=== PATIENT | female | born 1990 | race African-American/Black ===

== ENCOUNTER 2019-01-24 10:25 | Inpatient (IN) | payer BC ==
[2019-01-24 11:20] VITALS: BMI 36.2
[2019-01-24 12:00] LABS: BASO % 0.3 % (0-2.0); EOS % 0.6 % (0-4.5); HEMATOCRIT 35.6 % (32.4-45.2); HEMOGLOBIN 12.1 GM/dL (10.7-15.3); LYMPH % 28.9 % (8-40); MCH 26.5 pg (25.7-33.7); MCHC 33.9 g/dl (32.0-36.0); MEAN PLT VOLUME 8.8 fl (7.5-11.1); MONO % 9.4 % (3.8-10.2); NEUT % 60.8 % (42.8-82.8); PLATELET COUNT 245 K/MM3 (134-434); RBC 4.56 M/mm3 (3.60-5.2); RDW 15.2 % (11.6-15.6); WHITE BLOOD COUNT 6.8 K/mm3 (4.0-10.0)
[2019-01-24 12:16] LABS: INR 0.94 (0.83-1.09); PROTHROMBIN TIME (PATIENT) 11.1 SEC (9.7-13.0)
[2019-01-24 12:19] LABS: ACTIVATED PTT 26.1 SECONDS (25.2-36.5)
[2019-01-24 12:24] LABS: BLOOD UREA NITROGEN 5.9 mg/dL (7-18); CALCIUM 8.5 mg/dL (8.5-10.1); CREATININE 0.6 mg/dL (0.55-1.3); POTASSIUM 4.2 mmol/L (3.5-5.1)
[2019-01-24] MEDS ORDERED: BUTORPHANOL TARTRATE 1 MG/ML VIAL IVPB ONE (14:07)
[2019-01-24] MEDS ORDERED: PROMETHAZINE HCL 25 MG/1 ML VIAL IVPUSH ONE (14:07)
[2019-01-24] MEDS ORDERED: DINOPROSTONE 10 MG VAGINAL SUPPOSITORY VG ONE (14:08)
--- NOTE | 2019-01-24 14:15 | HP ---
Past Medical History - Admission Chief Complaint: Here for induction of labor History of Present Illness: 28 y/o with SIUP at 39 weeks here for induction of labor due to gestational HTN. Started on labetalol last week, HELLP labs 01/17/19 negative, pt asymptomatic. Pt and FOB with hemoglobin AC. Failed 1'GTT, normal 3 hour GTT. H/o X 2 History Source: Patient, Medical Record Limitations to Obtaining History: No Limitations - Past Medical History Cardiovascular: Yes: HTN Pulmonary: No: Asthma, COPD Reproductive: No: Ectopic ...: 3 ...Para: 2 ...Term: 2 ...: 0 ...Spon : 0 ...Induced : 0 ...Multiple Gestation: 0 ...EDC by [facility]: 02/01/19 Heme/Onc: No: Anemia Infectious Disease: No: HIV, MRSA, STD's Psych: No: Anxiety, Bipolar, Depression - Past Surgical History Past Surgical History: Yes: None Hx Myomectomy: No Hx Transabdominal Cerclage: No - Smoking History Smoking history: Never smoked Have you smoked in the past 12 months: No - Alcohol/Substance Use Hx Alcohol Use: No - Social History Usual Living Arrangement: Yes: With Spouse History of Recent Travel: No Home Medications - Allergies Allergies/Adverse Reactions: Allergies Allergy/AdvReac Type Severity Reaction Status Date / Time No Known Allergies Allergy Verified 01/24/19 10:32 - Home Medications Home Medications: Ambulatory Orders Acetaminophen [Tylenol] 650 mg PO PRN PRN 01/24/19 Pnv No.95/Ferrous Fum/Folic AC [ Vitamin Tablet] 1 each PO DAILY Review of Systems - Review of Systems Constitutional: reports: No Symptoms Eyes: reports: No Symptoms HENT: reports: No Symptoms Neck: reports: No Symptoms Cardiovascular: reports: No Symptoms Respiratory: reports: No Symptoms Gastrointestinal: reports: No Symptoms Genitourinary: reports: No Symptoms Breasts: reports: No Symptoms Reported Musculoskeletal: reports: No Symptoms Integumentary: reports: No Symptoms Neurological: reports: No Symptoms Endocrine: reports: No Symptoms Hematology/Lymphatic: reports: No Symptoms Psychiatric: reports: No Symptoms Physical Exam - Maternity Vital Signs: Vital Signs Temperature 98.1 F 01/24/19 10:25 Pulse Rate 94 H 01/24/19 10:25 Respiratory Rate 18 01/24/19 10:25 Blood Pressure 132/89 01/24/19 10:25 O2 Sat by Pulse Oximetry (%) Constitutional: Yes: Well Nourished, No Distress, Calm Eyes: Yes: Conjunctiva Clear, EOM Intact HENT: Yes: Atraumatic, Normocephalic Neck: Yes: WNL Cardiovascular: Yes: WNL - Abdominal Exam/OB Number of Fetuses: Single Presentation: Vertex Contractions: No Category: I Accelerations: Uniform Decelerations: None - Vaginal Exam/OB Amniotic Membrane Status: Intact Presentation: Vertex/Position - Physical Exam Psychiatric: Yes: Alert, Oriented - Labs Lab Results: CBC, BMP 01/24/19 11:40 01/24/19 11:40 Hemorrhage Risk Assessment - Risk Factors Medium Risk Factors: Yes: None High Risk Factors: Yes: None Risk Score: 1 Risk Level: Medium Risk Problem List - Problems (1) Gestational hypertension affecting third Code(s): O13.9 - GESTATIONAL HTN W/O SIGNIFICANT PROTEINURIA, UNSP TRIMESTER (2) GBS (group B Streptococcus carrier), +RV culture, currently Code(s): O99.820 - STREPTOCOCCUS B CARRIER STATE COMPLICATING Assessment/Plan 28 y/o with SIUP at 39 weeks IOL for gestational HTN for cervidil re evaluate 12 hours GBS positive, will need ampicillin in active labor/ROM
[2019-01-24] MEDS ORDERED: LABETALOL HCL 100 MG TABLET (FP) PO SCH (22:00)
[2019-01-24] MEDS ORDERED: DEXTROSE 5%-LACTATED RINGERS 1,000 ML IV SCH (22:30)
[2019-01-25] MEDS ORDERED: AMPICILLIN SODIUM 2 GM VIAL ONE (03:00)
[2019-01-25] MEDS ORDERED: AMPICILLIN - 2 GM in SODIUM CHLORIDE 100 ML IVPB ONE (03:00)
[2019-01-25] MEDS: AMPICILLIN - 1 GM in SODIUM CHLORIDE 100 ML IVPB SCH ×4 (07:08→18:46)
[2019-01-25] MEDS ORDERED: AMPICILLIN SODIUM 1 GM VIAL ONE ×4 (07:09→18:19)
--- NOTE | 2019-01-25 11:24 | PN ---
Ante-Partal Exam - Subjective Subjective: Pt comfortable, contractions have stopped. Vital Signs: Vital Signs Temperature 98.1 F 01/25/19 11:00 Pulse Rate 76 01/25/19 11:00 Respiratory Rate 20 01/25/19 11:00 Blood Pressure 136/86 01/25/19 11:00 O2 Sat by Pulse Oximetry (%) Bleeding: No Headache: No Visual changes: No Right upper quadrant pain: No - Contractions Contractions: No - Exam during Labor Heart Rate: 130 Variability: Moderate Category: I Monitor Accelerations: Absent Monitor Decelerations: None Amniotic Membrane Status: Intact Presentation: Vertex Station: -4 - Assessment/Plan Assessment/Plan: s/p cervidil external os 2-3cm internal os difficult to palpate will start pitocin
[2019-01-25] MEDS ORDERED: OXYTOCIN 30 UNITS in 0.9% NS 30 UNIT/500 ML INFUS.BAG IVPB SCH (11:30)
[2019-01-25] MEDS ORDERED: OXYTOCIN 30 UNITS in 0.9% NS 30 UNIT/500 ML INFUS.BAG IVPB ONE (11:57)
[2019-01-25] MEDS: LABETALOL HCL 100 MG TABLET (FP) PO SCH (12:12)
[2019-01-25] MEDS: PRENATAL VITAMINS W/ FOLIC ACID TABLET (FP) PO SCH (12:13)
[2019-01-25] MEDS ORDERED: LABETALOL HCL 200 MG TABLET (FP) ONE (16:52)
[2019-01-25] MEDS ORDERED: LABETALOL HCL 200 MG TABLET (FP) PO ONE (17:15)
--- NOTE | 2019-01-25 18:48 | PN ---
Ante-Partal Exam - Subjective Subjective: Pt feeling contractions, tolerating them without medication at this time. Vital Signs: Vital Signs Temperature 98.4 F 01/25/19 18:00 Pulse Rate 77 01/25/19 18:00 Respiratory Rate 20 01/25/19 18:00 Blood Pressure 119/85 01/25/19 18:00 O2 Sat by Pulse Oximetry (%) Bleeding: No Headache: No Visual changes: No Right upper quadrant pain: No - Contractions Contractions: Yes Regularity: Regular Intensity: Mild/Mod - Exam during Labor Heart Rate: 125 Variability: Moderate Category: I Monitor Accelerations: Present Monitor Decelerations: None Exam: Vaginal Dilatation (cm): 2 Effacement (%): 50 Amniotic Membrane Status: Intact Presentation: Transverse/Shoulder - Assessment/Plan Assessment/Plan: Upon examination, vertex no longer palpated. Bedside ultrasound completed and fetus is now transverse with head to maternal right.
--- NOTE | 2019-01-25 18:52 | PN ---
Progress Note (short form) - Note Progress Note: Plan of care discussed with patient in detail. Due to change of position, do not recommend continuation of induction. Pitocin stopped. delivery discussed in detail. Risks including bleeding/infection/ damage to surrounding structures explained. Questions answered in detail, pt aware and understands risks. Informed consent obtained. Will alert nursery/anesthesia. NPO Prep pt for c section Problem List - Problems (1) Gestational hypertension affecting third Code(s): O13.9 - GESTATIONAL HTN W/O SIGNIFICANT PROTEINURIA, UNSP TRIMESTER (2) GBS (group B Streptococcus carrier), +RV culture, currently Code(s): O99.820 - STREPTOCOCCUS B CARRIER STATE COMPLICATING (3) Malpresentation of fetus Code(s): O32.9XX0 - MATERNAL CARE FOR MALPRESENTATION OF FETUS, UNSP, UNSP
[2019-01-25] MEDS: ELECTROLYTE-148 SOLN 1,000 ML IV SCH (19:15)
[2019-01-26] MEDS ORDERED: METHYLERGONOVINE MALEATE 0.2 MG/1 ML AMP IM PRN (00:06)
[2019-01-26] MEDS ORDERED: morphine SULFATE/PF 0.5 MG/ML (2cc Syringe - QUVA) ONE (00:16)
[2019-01-26] MEDS ORDERED: PHENYLEPHRINE HCL 10 MG/1 ML SINGLE DOSE VIAL ONE (00:17)
[2019-01-26] MEDS ORDERED: ceFAZolin SODIUM 1 GM VIAL ONE ×2 (00:45)
[2019-01-26] MEDS ORDERED: OXYTOCIN 20 UNITS in 0.9% NS 20 UNIT/1,000 ML INFUS.BAG IV ONE ×2 (00:47→01:41)
[2019-01-26] MEDS ORDERED: diphenhydrAMINE HCL 25 MG CAPSULE (FP) PO PRN (01:04)
[2019-01-26] MEDS: OXYTOCIN 20 UNITS in 0.9% NS 20 UNIT/1,000 ML INFUS.BAG IV SCH ×2 (01:40→08:38)
[2019-01-26] MEDS: IBUPROFEN 800 MG/8 ML IJ IVPB PRN ×2 (04:09→12:40)
--- NOTE | 2019-01-26 07:54 | PN ---
Delivery - Delivery Section: Primary, Low Flap Transverse Type of Anesthesia: Spinal Episiotomy/Laceration: None EBL (cc): 600 Delivery, Single - Stages of Labor Date 1st Stage Initiatied: 01/25/19 Time 1st Stage Initiated: 07:00 Date of Delivery: 01/26/19 Time of Delivery: 00:49 Time Placenta Delivered: 00:50 Placenta: Yes: Manual Removal - Condition of System Support Analyst/Microbiological Laboratory Technician Present: Yes Name: Anjali Vazquez Infant Gender: Male Weight: 9 lb Position: Left, OA Total Hours ROM (Hrs/Mins): 5mins. - 1 Minute Total Score: 9 5 Minutes Total Score: 9 - [place] Feeding Plan Initial Plan: Elected not to breastfeed exclusively throughout hospitalization
--- NOTE | 2019-01-26 07:54 | OP ---
Operative Note - Note: Operative Date: 01/26/19 Pre-Operative Diagnosis: malpresentation, IUP at 39 weeks, gestational HTN Operation: primary LTCS Findings: live male normal b/l tubes and ovaries Post-Operative Diagnosis: Same as Pre-op Surgeon: Radha Beverly Field Organizer: Ga Tesfaye Anesthesiologist/RETAIL ADVISOR: Jeanmarie Bishop Anesthesia: Spinal Specimens Removed: placenta Estimated Blood Loss (mls): 600 Operative Report Dictated: Yes
[2019-01-26] MEDS: PRENATAL VITAMINS W/ FOLIC ACID TABLET (FP) PO SCH (09:31)
[2019-01-26] MEDS: LABETALOL HCL 100 MG TABLET (FP) PO SCH ×2 (10:00→22:13)
[2019-01-26] MEDS ORDERED: oxyCODONE HCL 5 MG TABLET PO PRN (17:31)
[2019-01-26] MEDS: SIMETHICONE 80 MG TAB.CHEW (FP) PO PRN ×2 (17:51→22:09)
[2019-01-26] MEDS: oxyCODONE HCL 5 MG TABLET PO PRN ×2 (17:51→22:09)
[2019-01-26] MEDS: ACETAMINOPHEN 325 MG TABLET (FP) PO PRN ×2 (17:52→22:09)
[2019-01-26] MEDS: SENNOSIDES/DOCUSATE COMBO (SENNA PLUS) TABLET (UD) PO PRN (22:08)
[2019-01-27] MEDS ORDERED: BISACODYL 10 MG SUPP.RECT RC PRN (00:06)
[2019-01-27] MEDS: SIMETHICONE 80 MG TAB.CHEW (FP) PO PRN ×4 (01:57→21:42)
[2019-01-27] MEDS: ACETAMINOPHEN 325 MG TABLET (FP) PO PRN ×4 (01:57→21:42)
[2019-01-27] MEDS: IBUPROFEN 600 MG TABLET (FP) PO PRN (01:58)
[2019-01-27 07:54] LABS: BASO % 0.4 % (0-2.0); EOS % 1.3 % (0-4.5); HEMATOCRIT 33.5 % (32.4-45.2); HEMOGLOBIN 11.6 GM/dL (10.7-15.3); LYMPH % 14.6 % (8-40); MCH 26.9 pg (25.7-33.7); MCHC 34.6 g/dl (32.0-36.0); MEAN CELL VOLUME 77.8 fl (80-96); MEAN PLT VOLUME 8.4 fl (7.5-11.1); MONO % 10.1 % (3.8-10.2); NEUT % 73.6 % (42.8-82.8); RBC 4.31 M/mm3 (3.60-5.2); RDW 15.3 % (11.6-15.6)
[2019-01-27 08:21] LABS: PLATELET COUNT 213 K/MM3 (134-434)
--- NOTE | 2019-01-27 08:43 | PN ---
Post Progress Note - Subjective Subjective: Pt seen/evaluated, doing well, no complaints. Tolerating diet, OOB. Denies GARCIA /RUQ pain/changes in vision. BPs in normal to mild range since delivery. Post Day: 1 Type of Delivery: Primary C/S Vital Signs: Vital Signs Temperature 98.6 F 01/26/19 22:00 Pulse Rate 86 01/26/19 22:00 Respiratory Rate 20 01/27/19 00:00 Blood Pressure 139/88 01/26/19 22:00 O2 Sat by Pulse Oximetry (%) 100 01/26/19 02:35 Uterus: Yes: Fundus Firm Incision: Yes: Dressing dry and intact Abdomen/GI: Yes: Abdomen soft Lochia: Yes: Rubra Lochia, amount: Small Extremities: Yes: Calves non-tender, Edema (trace b/l LE edema, nonpitting) Perineum: Yes: Intact Activity: Ambulating - Labs Labs: CBC WBC 9.0 K/mm3 (4.0-10.0) 01/27/19 07:16 RBC 4.31 M/mm3 (3.60-5.2) 01/27/19 07:16 Hgb 11.6 GM/dL (10.7-15.3) 01/27/19 07:16 Hct 33.5 % (32.4-45.2) 01/27/19 07:16 MCV 77.8 fl (80-96) L 01/27/19 07:16 MCH 26.9 pg (25.7-33.7) 01/27/19 07:16 MCHC 34.6 g/dl (32.0-36.0) 01/27/19 07:16 RDW 15.3 % (11.6-15.6) 01/27/19 07:16 Plt Count 213 K/MM3 (134-434) 01/27/19 07:16 MPV 8.4 fl (7.5-11.1) 01/27/19 07:16 Absolute Neuts (auto) 6.6 K/mm3 (1.5-8.0) 01/27/19 07:16 Neutrophils % 73.6 % (42.8-82.8) D 01/27/19 07:16 Lymphocytes % 14.6 % (8-40) D 01/27/19 07:16 Monocytes % 10.1 % (3.8-10.2) 01/27/19 07:16 Eosinophils % 1.3 % (0-4.5) D 01/27/19 07:16 Basophils % 0.4 % (0-2.0) 01/27/19 07:16 Nucleated RBC % 0 % (0-0) 01/27/19 07:16 Problem List - Problems (1) Gestational hypertension affecting third Code(s): O13.9 - GESTATIONAL HTN W/O SIGNIFICANT PROTEINURIA, UNSP TRIMESTER (2) GBS (group B Streptococcus carrier), +RV culture, currently Code(s): O99.820 - STREPTOCOCCUS B CARRIER STATE COMPLICATING (3) Malpresentation of fetus Code(s): O32.9XX0 - MATERNAL CARE FOR MALPRESENTATION OF FETUS, UNSP, UNSP Assessment/Plan POD#1 s/p primary c section for transverse lie and gHTN continue labetalol for BP > 140/90 BID CBC pending advance diet ambulation routine care
[2019-01-27] MEDS: PRENATAL VITAMINS W/ FOLIC ACID TABLET (FP) PO SCH (09:31)
[2019-01-27] MEDS: oxyCODONE HCL 5 MG TABLET PO PRN ×3 (09:31→21:43)
[2019-01-27] MEDS ORDERED: DIPHTH,PERTUSS(ACELL),TET 0.5 ML DISP.SYRIN IM ONE (10:00)
[2019-01-27] MEDS: LABETALOL HCL 100 MG TABLET (FP) PO SCH ×2 (10:17→22:26)
--- NOTE | 2019-01-27 17:05 | PN ---
Progress Note (short form) - Note Progress Note: Anesthesia post op note POD#1 s/p C section under spinal. pat seen and examined. VSS. No apparent post anesthesia complications.
--- NOTE | 2019-01-27 18:37 | PATH ---
Surgical Pathology Report Patient Name: OSCAR LYNN Med. Rec. #: [id number] /Age/Gender: 1990 (Age: 28) / F Account: [id number] Location: [facility] OBS/PULLBOAT ENGINEER Taken: 01/26/2019 Received: 01/26/2019 Reported: 01/27/2019 Physicians: Radha Beverly M.D. Specimen(s) Received PLACENTA Clinical History , 39 weeks gestation, gestational hypertension, malpresentation Final Diagnosis PLACENTA: THIRD TRIMESTER PLACENTA WITH FOCAL INFARCTION (1 CM IN GREATEST DIMENSION). TRIVASCULAR CORD. MEMBRANES WITH NO DIAGNOSTIC ABNORMALITIES. Electronically Signed Luca Barrera M.D. Gross Description The specimen is received fresh labeled placenta and is a 789 gram, 23.0 x 15.5 x 3.3 cm. placenta with attached membranes and umbilical cord. The attached membranes are weber, translucent with focal opacities and insert marginally. The umbilical cord measures 64 cm. in length and averages 1.2 cm. in diameter. The cord inserts eccentrically, 4 cm. to the nearest margin. No true knots or strictures are identified. Cut surface of the umbilical cord reveals 3 vessels. The surface is camp blue with moderate fibrin deposition and appropriate caliber vessels. The maternal surface is red-brown with focal defects. Sectioning reveals red-brown, spongy parenchyma. No lesions are identified. Paper Sorter And Counter sections are submitted in three cassettes as follows: 1- membrane rolls and umbilical cord; 2-3- full thickness sections of placenta. /01/26/2019 saudi01/26/2019
[2019-01-27] MEDS: SENNOSIDES/DOCUSATE COMBO (SENNA PLUS) TABLET (UD) PO PRN (21:45)
[2019-01-28] MEDS: IBUPROFEN 600 MG TABLET (FP) PO PRN ×2 (03:00→20:57)
[2019-01-28] MEDS: ACETAMINOPHEN 325 MG TABLET (FP) PO PRN ×2 (03:00→20:57)
[2019-01-28] MEDS: LABETALOL HCL 100 MG TABLET (FP) PO SCH ×4 (09:04→21:02)
[2019-01-28] MEDS: PRENATAL VITAMINS W/ FOLIC ACID TABLET (FP) PO SCH (09:06)
--- NOTE | 2019-01-28 09:12 | PN ---
Post Progress Note - Subjective Subjective: Pt seen/evaluated. Doing well. Pain controlled with PO pain meds. Tolerating regular diet. Ambulating, passing flatus/BM, voiding. No GARCIA/RUQ pain or changes in vision. LE edema trace. Type of Delivery: Primary C/S Vital Signs: Vital Signs Temperature 98.2 F 01/27/19 22:00 Pulse Rate 90 01/27/19 22:00 Respiratory Rate 18 01/27/19 22:00 Blood Pressure 138/87 01/27/19 22:00 O2 Sat by Pulse Oximetry (%) 100 01/26/19 02:35 Uterus: Yes: Fundus Firm Incision: Yes: Dressing dry and intact Abdomen/GI: Yes: Abdomen soft Lochia: Yes: Rubra Lochia, amount: Small Extremities: Yes: Calves non-tender, Edema (trace LE edema b/l ) Perineum: Yes: Intact Activity: Ambulating - Labs Labs: CBC WBC 9.0 K/mm3 (4.0-10.0) 01/27/19 07:16 RBC 4.31 M/mm3 (3.60-5.2) 01/27/19 07:16 Hgb 11.6 GM/dL (10.7-15.3) 01/27/19 07:16 Hct 33.5 % (32.4-45.2) 01/27/19 07:16 MCV 77.8 fl (80-96) L 01/27/19 07:16 MCH 26.9 pg (25.7-33.7) 01/27/19 07:16 MCHC 34.6 g/dl (32.0-36.0) 01/27/19 07:16 RDW 15.3 % (11.6-15.6) 01/27/19 07:16 Plt Count 213 K/MM3 (134-434) 01/27/19 07:16 MPV 8.4 fl (7.5-11.1) 01/27/19 07:16 Absolute Neuts (auto) 6.6 K/mm3 (1.5-8.0) 01/27/19 07:16 Neutrophils % 73.6 % (42.8-82.8) D 01/27/19 07:16 Lymphocytes % 14.6 % (8-40) D 01/27/19 07:16 Monocytes % 10.1 % (3.8-10.2) 01/27/19 07:16 Eosinophils % 1.3 % (0-4.5) D 01/27/19 07:16 Basophils % 0.4 % (0-2.0) 01/27/19 07:16 Nucleated RBC % 0 % (0-0) 01/27/19 07:16 Problem List - Problems (1) Gestational hypertension affecting third Code(s): O13.9 - GESTATIONAL HTN W/O SIGNIFICANT PROTEINURIA, UNSP TRIMESTER (2) GBS (group B Streptococcus carrier), +RV culture, currently Code(s): O99.820 - STREPTOCOCCUS B CARRIER STATE COMPLICATING (3) Malpresentation of fetus Code(s): O32.9XX0 - MATERNAL CARE FOR MALPRESENTATION OF FETUS, UNSP, UNSP (4) delivery delivered Code(s): O82 - ENCOUNTER FOR DELIVERY WITHOUT INDICATION Assessment/Plan 28 y/o POD#2 s/p primary delivery for malpresentation. AFVSS, BPs in normal to mildly elevated range, pt asymptomatic, continue labetalol BID prn BP > 140/90. Hgb 11.6, platelets normal range regular diet PO pain meds routine care.
[2019-01-28] MEDS: OXYTOCIN 20 UNITS in 0.9% NS 20 UNIT/1,000 ML INFUS.BAG IV SCH (11:37)
[2019-01-28] MEDS: ELECTROLYTE-148 SOLN 1,000 ML IV SCH (11:37)
--- NOTE | 2019-01-28 12:50 | OP ---
DATE OF OPERATION: 01/26/2019 PREOPERATIVE DIAGNOSIS: Single intrauterine at 39 weeks gestation, gestational hypertension, and malpresentation. POSTOPERATIVE DIAGNOSIS: Single intrauterine at 39 weeks gestation, gestational hypertension, and malpresentation. PROCEDURE: Primary low transverse section. SURGEON: Radha Beverly MD ANESTHESIA: Spinal. ESTIMATED BLOOD LOSS: 600 mL. COUNTS: Sponge, needle, and instrument counts correct. COMPLICATIONS: None. FINDINGS: Live male and normal bilateral tubes and ovaries. DISPOSITION: Stable to the PACU. BRIEF HISTORY AND PROCEDURE: Patient is a 28-year-old female who had been admitted to the hospital on January 24, 2019, for gestational hypertension at 39 weeks. The patient was given Cervidil for induction of labor that day. She was then started on Pitocin on the following day after being noted to be 2 cm dilated by the nursing staff overnight. That afternoon, the patient was examined and upon examination, the presenting part was no longer palpated. An ultrasound examination was completed, and the fetus had become transverse with head to maternal right. At this point, all induction medications had been stopped. Options were discussed with the patient, and plan was made for section. Consents for the procedure were signed. She was taken back to the operating room, giving spinal anesthesia, placed in the dorsal supine position. A Caballero catheter was placed under sterile conditions. A hard time-out was performed. A Pfannenstiel skin incision was created in the skin with a scalpel and carried to the underlying layer of rectus fascia sharply. The fascia was incised on either side of the midline sharply, and the fascial incision was carried in a superior lateral direction sharply. The fascia was tented upward and dissected off the underlying layer of rectus muscle sharply. The rectus muscle was identified, laterally, and the peritoneum was entered bluntly. A bladder blade was inserted. A lower transverse incision on the uterus was completed sharply and carried to the superior lateral direction bluntly. The infant was then delivered without difficulty. The head was palpated low but off to the maternal right, and the infant vertex was delivered from the right occiput anterior position, anterior shoulder which was the right shoulder along with the posterior shoulder, and the remainder of the infant delivered with ease. The cord was clamped twice and cut in between. The was taken to the warmer to be assessed by the neonatology staff, where Apgars of 9 and 9 were assigned. The placenta was delivered intact, was manually extracted and was noted to have a 3-vessel cord. The uterus was exteriorized from the abdomen, and the uterus contents were removed with a dry lap sponge until no remaining amniotic membrane or blood clot was appreciated. The hysterotomy was reapproximated using 1 Vicryl in a running locked fashion and a second layer using 0 Biosyn in a running imbricated fashion. Bilateral tubes and ovaries were noted to be normal. The posterior cul-de-sac was suctioned. The uterus was placed back in the abdomen. The hysterotomy again was noted to be hemostatic. The peritoneum was reapproximated using 2-0 chromic in a running fashion. The musculature was reapproximated with interrupted sutures using 0 Vicryl and 2-0 Biosyn. The fascia was reapproximated using 1 Vicryl in a running locked fashion. The subcutaneous tissue was irrigated and reapproximated using a 1 Vicryl in a running fashion. The skin was reapproximated in a subcuticular fashion using 3-0 Vicryl, and Steri-Strips were applied. The patient tolerated the procedure well, recovering in stable condition in the PACU after the procedure. RADHA BEVERLY DO /[id number]
[2019-01-28] MEDS: AMPICILLIN - 1 GM in SODIUM CHLORIDE 100 ML IVPB SCH (19:20)
--- NOTE | 2019-01-28 20:00 | DS ---
Physical Exam-DRILLING MACHINE OPERATOR Vital Signs: Vital Signs Temperature 98 F 01/28/19 10:00 Pulse Rate 87 01/28/19 18:23 Respiratory Rate 18 01/28/19 18:23 Blood Pressure 142/89 01/28/19 18:23 O2 Sat by Pulse Oximetry (%) 100 01/26/19 02:35 Constitutional: Yes: Well Nourished, No Distress, Calm Eyes: Yes: Conjunctiva Clear, EOM Intact HENT: Yes: Atraumatic Neck: Yes: Supple Cardiovascular: Yes: Regular Rate and Rhythm Respiratory: Yes: Regular Gastrointestinal: Yes: Normal Bowel Sounds, Soft, Tenderness (normal post op tenderness) External Genitalia: Yes: Normal ....Post : Yes: Uterus firm, Uterus non-tender Edema: Yes Edema: LLE: Trace, RLE: Trace (nonpitting) Wound/Incision: Yes: Clean/Dry, Well Approximated Neurological: Yes: Alert, Oriented Labs: CBC, BMP 01/27/19 07:16 01/24/19 11:40 Delivery - Delivery Section: Primary, Low Flap Transverse Type of Anesthesia: Spinal Episiotomy/Laceration: None EBL (cc): 600 Delivery, Single - Stages of Labor Date 1st Stage Initiatied: 01/25/19 Time 1st Stage Initiated: 07:00 Date of Delivery: 01/26/19 Time of Delivery: 00:49 Time Placenta Delivered: 00:50 Placenta: Yes: Manual Removal - Condition of Manager Change/Hospice Entrance Attendant Present: Yes Name: Anjali Vazquez Gender: Male Weight: 9 lb Position: Left, OA Total Hours ROM (Hrs/Mins): 5mins. - 1 Minute Total Score: 9 5 Minutes Total Score: 9 - [place] Feeding Plan Initial Plan: Elected not to breastfeed exclusively throughout hospitalization Discharge Summary Reason For Visit: INDUCTION OF LABOR Current Active Problems delivery delivered (Acute) GBS (group B Streptococcus carrier), +RV culture, currently (Acute) Gestational hypertension affecting third (Acute) Malpresentation of fetus (Acute) Hospital Course: Pt admitted on 01/24/19 for induction of labor for gestational hypertension. On 01/25/19 upon vaginal examination it appeared that the fetus had chnaged presentation and upon ultrasound evaluation there was confirmation of transverse presentation. At this time, the labor induction was stopped and the patient then underwent a delivery shale miner 01/26/19. The patient had a post course complicated only by mildly elevated blood pressures which were controlled with labetalol. Otherwise the patient met all post op milestones and was discharged home on post op day 3. Condition: Good - Instructions Diet, Activity, Other Instructions: Physical activity Resume your normal everyday activity as tolerated no heavy lifting or exercise until seen by your surgeon. You may walk unlimited amounts and climb stairs. You may resume driving the car when you feel safe and comfortable behind the wheel. No sexual activity as instructed. Wound care If they are tapes on the skin leave them in place. They will peel off in the next 7 to 10 days. Do Not Peel them off. You may shower the day after surgery. If there are tapes present on the skin, you may shower over them. Diet There are no dietary restrictions. Eat healthy, high-fiber foods. Drink 6 to 8 glasses of liquid each day. This will assist in keeping your bowels regular. Pain management You may take Tylenol or Ibuprofen (for example, Motrin, Advil etc.) as needed for mild pain. If any narcotic medication is sent to the pharmacy please use for moderate to severe pain as directed. Call MD for any of the following: Severe pain not relieved by medication Fever of 101 or higher Excessive bleeding or drainage on dressing Inability to urinate Disposition: HOME - Home Medications Comprehensive Discharge Medication List: Ambulatory Orders Acetaminophen [Tylenol] 650 mg PO PRN PRN 01/24/19 Pnv No.95/Ferrous Fum/Folic AC [ Vitamin Tablet] 1 each PO DAILY Labetalol 200mg PO BID PRN blood pressure > 140/90
[2019-01-28] MEDS: SIMETHICONE 80 MG TAB.CHEW (FP) PO PRN (20:57)
[2019-01-29] MEDS: ACETAMINOPHEN 325 MG TABLET (FP) PO PRN ×2 (00:37→09:07)
[2019-01-29] MEDS: SIMETHICONE 80 MG TAB.CHEW (FP) PO PRN (00:37)
[2019-01-29] MEDS: IBUPROFEN 600 MG TABLET (FP) PO PRN ×2 (00:37→09:06)
[2019-01-29 07:49] LABS: BASO % 0.4 % (0-2.0); EOS % 2.2 % (0-4.5); HEMATOCRIT 35.9 % (32.4-45.2); HEMOGLOBIN 12.1 GM/dL (10.7-15.3); LYMPH % 25.7 % (8-40); MCH 26.7 pg (25.7-33.7); MCHC 33.7 g/dl (32.0-36.0); MEAN CELL VOLUME 79.3 fl (80-96); MEAN PLT VOLUME 8.1 fl (7.5-11.1); MONO % 8.8 % (3.8-10.2); NEUT % 62.9 % (42.8-82.8); RBC 4.52 M/mm3 (3.60-5.2); RDW 15.5 % (11.6-15.6); WHITE BLOOD COUNT 7.1 K/mm3 (4.0-10.0)
[2019-01-29] MEDS: PRENATAL VITAMINS W/ FOLIC ACID TABLET (FP) PO SCH (09:07)
[2019-01-29 09:14] LABS: PLATELET COUNT 249 K/MM3 (134-434)
[2019-01-29] MEDS: LABETALOL HCL 100 MG TABLET (FP) PO SCH (10:05)
[2019-01-29 10:14] VITALS: BP 137/88; PULSE 90; TEMP 99.1
== END 2019-01-29 12:10 | disposition home or self-care (01) | DRG 788 ==
LOC: JLDR 10:25 → J3W 01-26 03:30
PROVIDERS: ADMIT Obstetrics & Gynecology; ATTEND Obstetrics & Gynecology
PROC: 3E0P7VZ Introduction of Hormone into Female Reproductive, Via Natural or Artificial Opening (ICD-10-PCS; 2019-01-24)
PROC: 10D00Z1 Extraction of Products of Conception, Low, Open Approach (ICD-10-PCS; principal; 2019-01-26)
DX: O32.2XX0 Maternal care for transverse and oblique lie, not applicable or unspecified (principal); O13.3 Gestational [pregnancy-induced] hypertension without significant proteinuria, third trimester; Z3A.39 39 weeks gestation of pregnancy; Z22.330 Carrier of Group B streptococcus; Z37.0 Single live birth
CPT/HCPCS: 36415; 80048; 85025; 85610; 85730; 86593; 86850; 86900; 86901; 88307-TC; 90715